=== PATIENT | female | born 1940 ===

== ENCOUNTER 2021-09-06 14:19 | Outpatient (CLI) | payer OTHER | END 2021-09-06 15:00 | disposition home or self-care (01) | LOC: RAD 14:19 | PROVIDERS: ATTEND Orthopaedic Surgery | DX: M25.561 Pain in right knee (principal); M25.562 Pain in left knee ==

== ENCOUNTER 2021-09-20 13:21 | Outpatient (CLI) | payer OTHER | END 2021-09-20 13:24 | disposition home or self-care (01) | LOC: RAD 13:21 | PROVIDERS: ATTEND Orthopaedic Surgery | DX: M25.572 Pain in left ankle and joints of left foot (principal) ==

== ENCOUNTER 2021-12-15 09:47 | Outpatient (CLI) | payer OTHER ==
[~2021-12-15] VITALS: Ht 162.6 cm; Wt 90.7 kg
== END 2021-12-15 09:56 | disposition home or self-care (01) ==
LOC: LAB 09:47
PROVIDERS: ATTEND Orthopaedic Surgery
DX: D64.9 Anemia, unspecified (principal); E88.9 Metabolic disorder, unspecified; D68.8 Other specified coagulation defects; N39.0 Urinary tract infection, site not specified; A49.02 Methicillin resistant Staphylococcus aureus infection, unspecified site; E11.9 Type 2 diabetes mellitus without complications; Z76.89 Persons encountering health services in other specified circumstances; I10 Essential (primary) hypertension; I49.9 Cardiac arrhythmia, unspecified